=== PATIENT | female | born 1950 | race Caucasian/White ===

== ENCOUNTER → 2016-07-21 | Outpatient (CLI) | payer BC ==
[~2016-07-21] MED LIST: ARTHROTEC 751 TABLET PO; ASCORBIC ACID500 M3 PO; BESIVANCE5 ML BOTH EYES; CHEWABLE-VITE1 EACH PO; CIPRO500 MG PO; DICLOFENAC-MIS1 EAC3 PO; KEFLEX500 MG PO; LISINOPRIL10 MG PO; OSTEO BI-FLEX1 EAC1 PO; PERCOCET 5/31 TABLET PO; RALOXIFENE HCL60 MG PO; SERTRALINE HCL50 MG PO; ZOFRAN ODT4 MG PO; [UNRECOGNIZED DRUG - OTHER] PO
== END | disposition home or self-care (01) ==
LOC: CDC 09:42
DX: R94.31 Abnormal electrocardiogram [ECG] [EKG] (principal)
CPT/HCPCS: 93000

== ENCOUNTER 2016-07-24 22:31 | Emergency (ER) | payer BC ==
[~2016-07-24] VITALS: Ht 157.5 cm; Wt 74.5 kg
[~2016-07-24 22:31] MED LIST changes: -ARTHROTEC 751 TABLET PO; -ASCORBIC ACID500 M3 PO; -CIPRO500 MG PO; -KEFLEX500 MG PO; -PERCOCET 5/31 TABLET PO; -ZOFRAN ODT4 MG PO
[2016-07-24 22:54] LABS: HEMATOCRIT 40.4 % (36.0-46.0); MCH 30.9 PG (29.0-34.0); MCHC 33.7 G/DL (30.0-36.0); MCV 91.8 FL (83-99); MEAN PLAT.VOLUME 9.4 uM^3 (9.5-12.4); PLATELET COUNT 164 K/uL (156-360); RBC DIS.WIDTH-CV 14.3 % (11.8-14.6); RBC DIS.WIDTH-SD 46.7 % (39-53)
[2016-07-24 23:01] LABS: WHITE BLOOD COUNT 11.4 K/uL (4.1-10.2)
[2016-07-24 23:03] LABS: CHLORIDE 107 mEq/L (99-109); POTASSIUM 3.3 mEq/L (3.7-5.4); SODIUM 140 mEq/L (136-147)
[2016-07-24 23:05] LABS: GLUCOSE 110 mg/dL (70-99)
[2016-07-24 23:06] LABS: ANION GAP 11 MEQ/L (2-14)
[2016-07-24 23:07] LABS: TOTAL BILIRUBIN 1.2 mg/dL (0.0-1.0)
[2016-07-24 23:08] LABS: ALKALINE PHOSPHATASE 106 IU/L (3-129)
[2016-07-24 23:09] LABS: GFR ESTIMATE (CALCULATED) > 59 mL/min/
[2016-07-24 23:10] LABS: UREA NITROGEN (BUN) 13 mg/dL (9-23)
[2016-07-25 02:19] LABS: ADD MIUA? YES; BILIRUBIN NEGATIVE; BLOOD LARGE; COLOR DK YELLOW ((YELLOW)); GLUCOSE (STRIP) NEGATIVE; KETONES NEGATIVE; LEUKOCYTES LARGE; NITRITE NEGATIVE; PROTEIN (STRIP) 30; SPECIFIC GRAVITY 1.016 (1.000-1.030)
[2016-07-25 02:32] LABS: RED BLOOD CELLS TNTC /HPF (0-5); WHITE BLOOD CELLS TNTC /HPF (0-5)
[2016-07-25 02:33] LABS: UCUL ADDED? YES
[2016-07-25] MEDS ORDERED: KEFLEX500 MG PO (03:31)
[2016-07-25] MEDS ORDERED: ZOFRAN ODT4 MG PO (03:33)
[2016-07-25 03:50] VITALS: BP 101/64
== END 2016-07-25 03:51 | disposition home or self-care (01) ==
LOC: EME 22:31
DX: N20.0 Calculus of kidney (principal); N39.0 Urinary tract infection, site not specified; Z87.442 Personal history of urinary calculi; Z87.440 Personal history of urinary (tract) infections; Z88.6 Allergy status to analgesic agent; Z86.79 Personal history of other diseases of the circulatory system
CPT/HCPCS: 74176; 76705; 80053; 81003; 85027; 87077; 87086; 87186; 99281; 99285; J0696; J1170; J1885; J2405; J3010; J7030; J7050

== ENCOUNTER 2016-07-27 16:01 | Inpatient (IN) | payer BC ==
[~2016-07-27] VITALS: Ht 157.5 cm; Wt 77.2 kg
[~2016-07-27 16:01] MED LIST changes: +KEFLEX500 MG PO; +ZOFRAN ODT4 MG PO
[2016-07-27 17:04] LABS: EOSINOPHIL (%) 1.8 % (0-5); EOSINOPHIL COUNT 0.2 K/uL (0-0.3); HEMATOCRIT 33.4 % (36.0-46.0); IMMATURE GRANULOCYTE (%) 0.3 % (0.0-0.7); IMMATURE GRANULOCYTE COUNT 0.3 K/uL; LYMPHOCYTE COUNT 1.1 K/uL (1.0-2.8); MCH 30.9 PG (29.0-34.0); MCHC 33.5 G/DL (30.0-36.0); MEAN PLAT.VOLUME 9.2 uM^3 (9.5-12.4); MONOCYTE (%) 8.3 % (3-12); MONOCYTE COUNT 0.9 K/uL (0-0.8); NEUTROPHIL (%) 79.2 % (45-76); NEUTROPHIL COUNT 8.9 K/uL (1.8-6.4); PLATELET COUNT 152 K/uL (156-360); RBC DIS.WIDTH-CV 15.1 % (11.8-14.6); RBC DIS.WIDTH-SD 49.3 % (39-53); RED BLOOD COUNT 3.63 M/uL (3.80-5.20); WHITE BLOOD COUNT 11.2 K/uL (4.1-10.2)
[2016-07-27 17:10] LABS: CHLORIDE 110 mEq/L (99-109); POTASSIUM 3.6 mEq/L (3.7-5.4); SODIUM 137 mEq/L (136-147)
[2016-07-27 17:11] LABS: GLUCOSE 95 mg/dL (70-99)
[2016-07-27 17:13] LABS: ANION GAP 9 MEQ/L (2-14)
[2016-07-27 17:15] LABS: GFR ESTIMATE (CALCULATED) > 59 mL/min/
[2016-07-27 17:16] LABS: UREA NITROGEN (BUN) 18 mg/dL (9-23)
[2016-07-27 17:31] LABS: ADD MIUA? YES; BILIRUBIN SMALL; BLOOD TRACE; COLOR DK YELLOW ((YELLOW)); GLUCOSE (STRIP) NEGATIVE; KETONES NEGATIVE; LEUKOCYTES SMALL; NITRITE NEGATIVE; PROTEIN (STRIP) 30; SPECIFIC GRAVITY 1.027 (1.000-1.030)
[2016-07-27 17:54] LABS: RED BLOOD CELLS RARE /HPF (0-5)
[2016-07-27 17:55] LABS: BACTERIA 1+; CASTS NONE SEEN /LPF; CRYSTALS NONE SEEN; EPITHELIAL CELLS RARE; MUCUS NONE SEEN; UCUL ADDED? NO
[2016-07-27 19:18] LABS: TOTAL BILIRUBIN 1.7 mg/dL (0.0-1.0)
[2016-07-27 19:21] LABS: ALKALINE PHOSPHATASE 154 IU/L (3-129); DIRECT BILIRUBIN 1.2 mg/dL (0.0-0.3)
[2016-07-27 19:22] LABS: LIPASE 16 U/L (1.0-51.0)
[2016-07-27 19:39] LABS: TROP-I INTERPRETATION NEGATIVE; TROPONIN-I < 0.01 ng/mL (0.0-0.30)
[2016-07-27] MEDS ORDERED: ARTHROTEC 751 TABLET PO (19:40)
[2016-07-27] MEDS ORDERED: PERCOCET 5/31 TABLET PO (19:40)
[2016-07-27] MEDS ORDERED: ASCORBIC ACID500 M3 PO (19:40)
[2016-07-27 22:55] VITALS: BP 127/68
[2016-07-27 23:30] VITALS: BP 127/68
[2016-07-28 03:15] VITALS: BP 121/62
[2016-07-28 08:10] VITALS: BP 117/63
[2016-07-28 12:00] VITALS: BP 141/63
[2016-07-28 19:59] VITALS: BP 135/74
[2016-07-28 22:50] VITALS: BP 139/78
[2016-07-29 04:27] VITALS: BP 171/81
[2016-07-29 08:07] VITALS: BP 137/75
[2016-07-29] MEDS ORDERED: CIPRO500 MG PO (12:34)
== END 2016-07-29 13:54 | disposition home or self-care (01) | DRG 854 ==
LOC: EME 16:01 → 2EAST 21:13 → EDOF 21:13 → 2EAST 23:07
DX: A41.9 Sepsis, unspecified organism (principal); N39.0 Urinary tract infection, site not specified; N20.1 Calculus of ureter; I48.91 Unspecified atrial fibrillation; I10 Essential (primary) hypertension; N99.81 Other intraoperative complications of genitourinary system; M19.90 Unspecified osteoarthritis, unspecified site; Z87.440 Personal history of urinary (tract) infections
CPT/HCPCS: 71275; 74000; 76000; 80048; 80076; 81003; 83605; 83690; 84484; 85025; 87040; 93005; 94640; 94799; 99281; 99285; C1876; J0290; J0330; J0696; J1100; J1170; J1885; J2175; J2250; J2405; J3010; J7030; J7050

== ENCOUNTER 2016-09-23 10:59 | Day surgery (SDC) | payer BC ==
[~2016-09-23] VITALS: Ht 157.5 cm; Wt 75.3 kg
[~2016-09-23 10:59] MED LIST changes: +ARTHROTEC 751 TABLET PO; +ASCORBIC ACID500 M3 PO; +CIPRO500 MG PO; +EVISTA60 MG PO; +FLOMAX0.4 MG PO; +PERCOCET 5/31 TABLET PO; +ZOLOFT50 MG PO
[2016-09-23 11:39] VITALS: BP 159/81
[2016-09-23 12:54] LABS: METH RESISTANT S AUREUS PCR NEGATIVE (NEGATIVE)
[2016-09-23 13:00] LABS: PROBE CHECK PASS; SPECIMEN PROCESSING CONTROL PASS
[2016-09-23 15:03] VITALS: BP 163/66
[2016-09-23 15:30] VITALS: BP 163/66
== END 2016-09-23 15:45 | disposition home or self-care (01) ==
LOC: SDC 10:59
PROVIDERS: Urology
DX: N20.1 Calculus of ureter (principal); N13.5 Crossing vessel and stricture of ureter without hydronephrosis; M19.90 Unspecified osteoarthritis, unspecified site; Z79.82 Long term (current) use of aspirin; Z80.0 Family history of malignant neoplasm of digestive organs; Z83.3 Family history of diabetes mellitus
CPT/HCPCS: 74000; 74420; 87641; C1876; J0690; J1100; J2405; J3010; J7050

== ENCOUNTER → 2016-10-13 | Outpatient (CLI) | payer BC | END | disposition home or self-care (01) | LOC: NUC 10:36 | DX: N13.30 Unspecified hydronephrosis (principal); N20.0 Calculus of kidney | CPT/HCPCS: 78709; A9562 ==

== ENCOUNTER → 2017-04-12 | Outpatient (CLI) | payer OTHER, MEDICARE | END | disposition home or self-care (01) | LOC: NUC 10:46 | DX: N13.30 Unspecified hydronephrosis (principal); N28.89 Other specified disorders of kidney and ureter; R94.4 Abnormal results of kidney function studies; Z87.448 Personal history of other diseases of urinary system | CPT/HCPCS: 78709; A9562 ==

== ENCOUNTER 2017-10-13 05:45 | Day surgery (SDC) | payer OTHER, MEDICARE ==
[~2017-10-13] VITALS: Ht 157.5 cm; Wt 78.5 kg
[~2017-10-13 05:45] MED LIST changes: +ASPIR 8181 M1 PO; +MULTI-VITAMIN1 EAC4 PO
[2017-10-13 06:46] VITALS: BP 139/85
[2017-10-13 12:46] VITALS: BP 172/87
[2017-10-13 13:51] VITALS: BP 136/73
[2017-10-13 14:30] VITALS: BP 131/83
== END 2017-10-13 14:30 | disposition home or self-care (01) ==
LOC: SDC 05:45
DX: M19.071 Primary osteoarthritis, right ankle and foot (principal); M77.51 Other enthesopathy of right foot and ankle; G57.61 Lesion of plantar nerve, right lower limb; R26.0 Ataxic gait; K21.9 Gastro-esophageal reflux disease without esophagitis; F32.9 Major depressive disorder, single episode, unspecified; I10 Essential (primary) hypertension; M85.80 Other specified disorders of bone density and structure, unspecified site; I47.1 Supraventricular tachycardia; Z82.49 Family history of ischemic heart disease and other diseases of the circulatory system; Z83.3 Family history of diabetes mellitus; Z80.0 Family history of malignant neoplasm of digestive organs; Z80.3 Family history of malignant neoplasm of breast; Z80.1 Family history of malignant neoplasm of trachea, bronchus and lung
CPT/HCPCS: 73630; 76000; 87641; C1713; J0131; J0690; J1100; J1885; J2250; J2405; J2795; J3010; Q0175; S0020

== ENCOUNTER 2018-03-10 09:58 | Emergency (ER) | payer OTHER, MEDICARE ==
[~2018-03-10] VITALS: Ht 157.5 cm; Wt 79.0 kg
[2018-03-10 10:42] LABS: BASOPHIL (%) 1.2 % (0-1); BASOPHIL COUNT 0.1 K/uL (0-0.1); EOSINOPHIL (%) 3.3 % (0-5); EOSINOPHIL COUNT 0.2 K/uL (0-0.3); HEMATOCRIT 35.7 % (36.0-46.0); IMMATURE GRANULOCYTE (%) 0.5 % (0.0-0.7); LYMPHOCYTE (%) 39.3 % (15-42); LYMPHOCYTE COUNT 2.2 K/uL (1.0-2.8); MCH 31.2 PG (29.0-34.0); MCHC 33.6 G/DL (30.0-36.0); MCV 92.7 FL (83-99); MONOCYTE (%) 7.2 % (3-12); MONOCYTE COUNT 0.4 K/uL (0-0.8); NEUTROPHIL (%) 48.5 % (45-76); NEUTROPHIL COUNT 2.8 K/uL (1.8-6.4); PLATELET COUNT 139 K/uL (156-360); RBC DIS.WIDTH-CV 13.7 % (11.8-14.6); RBC DIS.WIDTH-SD 46.9 % (39-53); RED BLOOD COUNT 3.85 M/uL (3.80-5.20); WHITE BLOOD COUNT 5.7 K/uL (4.1-10.2)
[2018-03-10 11:18] LABS: CHLORIDE 111 MEQ/L (99-109); POTASSIUM 3.2 MEQ/L (3.7-5.4); SODIUM 144 MEQ/L (136-147)
[2018-03-10 11:19] LABS: PTT 27.3 SEC (25-37)
[2018-03-10 11:23] LABS: CREATININE 0.7 MG/DL (0.6-1.3); GFR ESTIMATE (CALCULATED) > 59 mL/min/; GLUCOSE 136 mg/dL (70-99); UREA NITROGEN (BUN) 18 mg/dL (9-23)
[2018-03-10 12:14] VITALS: BP 167/87
== END 2018-03-10 12:31 | disposition short-term general hospital (02) ==
LOC: EME 09:58
PROVIDERS: Emergency Medicine
DX: I61.5 Nontraumatic intracerebral hemorrhage, intraventricular (principal); I60.9 Nontraumatic subarachnoid hemorrhage, unspecified; R51 Headache; R47.81 Slurred speech; R41.0 Disorientation, unspecified; R11.0 Nausea; Z87.442 Personal history of urinary calculi; Z79.82 Long term (current) use of aspirin
CPT/HCPCS: 70450; 80048; 85025; 85610; 85730; 93005; 99281; 99285; J2405